=== PATIENT | female | born 1985 | race Caucasian/White ===

== ENCOUNTER → 2017-04-27 | Outpatient (CLI) | payer OTHER | LOC: HPND 10:34 | PROVIDERS: ATTEND Obstetrics & Gynecology | DX: O36.80X0 Pregnancy with inconclusive fetal viability, not applicable or unspecified (principal); Z3A.09 9 weeks gestation of pregnancy | CPT/HCPCS: 76801 ==

== ENCOUNTER 2017-11-24 18:27 | Inpatient (IN) | payer OTHER ==
[~2017-11-24] VITALS: Ht 170.2 cm; Wt 79.4 kg
[~2017-11-24 18:27] MED LIST: DIPHTH/TETANUS/ACEL PERTUSSIS (BOOSTER) 0.5 ML VIAL/PFS IM ONE; MEASLES, MUMPS, RUBELLA VACCINE 0.5 ML VIAL SQ ONE
[2017-11-24] MEDS ORDERED: PREN29TA PO (18:37)
[2017-11-24] MEDS ORDERED: LACTCAP8 PO (18:38)
[2017-11-24] MEDS ORDERED: LACTATED RINGER'S 1000 ML INJ 1,000 ML IV PRN (19:13)
[2017-11-24] MEDS ORDERED: LACTATED RINGER'S 1000 ML INJ 1,000 ML IV SCH (19:13)
[2017-11-24] MEDS ORDERED: CITRIC ACID-SODIUM CITRATE LIQ 30 ML UDC PO SCH (19:15)
[2017-11-24] MEDS ORDERED: MINERAL OIL 10 ML VIAL TOPICAL PRN (19:15)
[2017-11-24] MEDS ORDERED: LIDOCAINE HCL 1% 50 ML VIAL INFIL PRN (19:15)
[2017-11-24] MEDS ORDERED: SODIUM CHLORID 0.9% 500 ML INJ 500 ML IV PRN (19:15)
[2017-11-24] MEDS ORDERED: LIDOCAINE HCL 1% 50 ML VIAL I-DERMAL PRN (19:15)
[2017-11-24] MEDS ORDERED: OXYTOCIN 30 UNITS-500ML PREMIX 500 ML IV ONE (19:15)
--- NOTE | 2017-11-24 19:18 | HHI.HP ---
HPI Chief Complaint Contraction pain Date Seen: November 24, 2017 Time Seen: 19:14 Travel History International Travel<30 Days: No Contact w/Intl Traveler<30Days: No Known Affected Area: No History of Present Illness HPI 32-year-old white female at 39 weeks and 6 days presents complaining of labor. Denies bleeding or leakage of fluid. heart rate tracing is reactive she is yamil every 3 minutes. [facility] and has her recreation superintendent with her here today. Weeks Gestation: 39 Para: 2 : 3 History Obstetric History Obstetric History 2 vaginal deliveries Social History Alcohol Use: No Tobacco Use: No Substance Abuse: No Allergies-Medications (Allergen,Severity, Reaction): Coded Allergies: penicillin G (Verified Allergy, Intermediate, 06/17/17) Home Meds Reported Medications Lactobacillus Acidophilus (Probiotic) 10 Billion Cell Cap, 1 CAP PO TIDAC for Nutritional Supplement, #90 CAP 0 Refills 11/24/17 Vit-Iron Carbonyl ( Plus Iron 29-1 mg) 29 Mg Iron-1 Mg Tab, 1 TAB PO DAILY for Nutritional Supplement, #30 TAB 0 Refills 11/24/17 Review of Systems General / Constitutional: No: Fever, Weight Gain, Chills, Other Eyes: No: Diploplia, Blurred Vision, Visual changes, Pain, Photophobia HENT: No: Headaches, Vertigo, Lightheadedness Cardiovascular: No: Irregular Rhythm, Chest Pain or Discomfort, Palpitations, Tachycardia, Syncope, Varicosities, Edema, Cyanosis Respiratory: No: Cough, Short of Breath, Other Gastrointestinal: Abdominal Pain, No: Nausea, Vomiting, Diarrhea Genitourinary: No: Decreased Urinary Output, Oliguria Musculoskeletal: No: Limited ROM, Weakness, Cramping, Edema, Pain Skin: No Rash, No Itching, No Dryness, No Lumps, No Change in Pigmentation, No Change in Nails, No Alopecia, No Lesions Neurologic: No: Weakness, Dizziness, Syncope, Focal Abnormalities, Coordination Problem, Headache, Slurred Speech, Seizures Psychiatric: No: Depression, Suicidal Ideations, Homicidal Ideation Endocrine: No: Heat Intolerance, Cold Intolerance, Polydipsia, Polyuria, Other Physical Exam Narrative GENERAL: Well-nourished, well-developed patient. SKIN: Warm and dry. HEAD: Normocephalic and atraumatic. EYES: No scleral icterus. No injection or drainage. ENT: No nasal drainage noted. Mucous membranes pink. Airway patent. NECK: Supple, trachea midline. No JVD. CARDIOVASCULAR: Regular rate and rhythm without murmurs, gallops, or rubs. RESPIRATORY: Breath sounds equal bilaterally. No accessory muscle use. BREASTS: Bilateral exam showed no masses , no retractions, no nipple discharge. ABDOMEN/GI: Abdomen soft, non-tender, bowel sounds present, no rebound, no guarding Gravid to [-39] weeks size Fundal Height: [39-] GENITOURINARY: External Genitalia: intact and normal in appearance BUS glands: [-] Cervix: [post-] Dilatation: [-4-5] Effacement: [-80] Station: [-2] Presentation: [-vtx] Membranes: [intact ] Uterine Contractions: [-reg] FHT's: Category: [1-] Baseline: [133-] Reactive: [-R] Variability: [mod-] Decels: [-0] EXTREMITIES: No cyanosis or edema. BACK: Nontender without obvious deformity. No CVA tenderness. NEUROLOGICAL: Awake and alert. Motor and sensory grossly within normal limits. Five out of 5 muscle strength in all muscle groups. Normal speech. Caprini VTE Risk Assessment Caprini VTE Risk Assessment: No/Low Risk (score <= 1) Caprini Risk Assessment Model Point Value = 1 Point Value = 2 Point Value = 3 Point Value = 5 Age 41-60 Minor surgery BMI > 25 kg/m2 Swollen legs Varicose veins or History of unexplained or recurrent spontaneous Oral contraceptives or hormone replacement Sepsis (< 1 month) Serious lung disease, including pneumonia (< 1 month) Abnormal pulmonary function Acute myocardial infarction Congestive heart failure (< 1 month) History of inflammatory bowel disease Medical patient at bed rest Age 61-74 Arthroscopic surgery Major open surgery (> 45 min) Laparoscopic surgery (> 45 min) Malignancy Confined to bed (> 72 hours) Immobilizing plaster cast Central venous access Age >= 75 History of VTE Family history of VTE Factor V Leiden Prothrombin [id number] Lupus anticoagulant Anticardiolipin antibodies Elevated serum homocysteine Heparin-induced thrombocytopenia Other congenital or acquired thrombophilia Stroke (< 1 month) Elective arthroplasty Hip, pelvis, or leg fracture Acute spinal cord injury (< 1 month) Prophylaxis Regimen Total Risk Factor Score Risk Level Prophylaxis Regimen 0-1 Low Early ambulation 2 Moderate Order ONE of the following: *Sequential Compression Device (SCD) *Heparin 5000 units SQ BID 3-4 Higher Order ONE of the following medications: *Heparin 5000 units SQ TID *Enoxaparin/Lovenox 40 mg SQ daily (WT < 150 kg, CrCl > 30 mL/min) *Enoxaparin/Lovenox 30 mg SQ daily (WT < 150 kg, CrCl > 10-29 mL/min) *Enoxaparin/Lovenox 30 mg SQ BID (WT < 150 kg, CrCl > 30 mL/min) AND/OR *Sequential Compression Device (SCD) 5 or more Highest Order ONE of the following medications: *Heparin 5000 units SQ TID (Preferred with Epidurals) *Enoxaparin/Lovenox 40 mg SQ daily (WT < 150 kg, CrCl > 30 mL/min) *Enoxaparin/Lovenox 30 mg SQ daily (WT < 150 kg, CrCl > 10-29 mL/min) *Enoxaparin/Lovenox 30 mg SQ BID (WT < 150 kg, CrCl > 30 mL/min) AND *Sequential Compression Device (SCD) Data Data Orders Orders Admit To Inpatient (11/24/17 ) Vital Signs (Adult) .Per protocol (11/24/17 19:13) Heart (11/24/17 19:13) Amnioinfusion (11/24/17 19:13) Urinary Catheter Management .ONCE (11/24/17 19:13) Lactated Ringer's 1000 Ml Inj (Lr 1000 M (11/24/17 19:13) Lactated Ringer's 1000 Ml Inj (Lr 1000 M (11/24/17 19:13) Sodium Chlorid 0.9% 500 Ml Inj (Ns 500 M (11/24/17 19:15) Sodium Chlor 0.9% 1000 Ml Inj (Ns 1000 M (11/24/17 19:33) Lidocaine 1% Inj (50 Ml) (Xylocaine 1% I (11/24/17 19:15) Citric Acid-Sodium Citrate Liq (Bicitra (11/24/17 19:15) Fentanyl Inj (Fentanyl Inj) (11/24/17 19:15) Fentanyl Inj (Fentanyl Inj) (11/24/17 19:15) Complete Blood Count With Diff (11/24/17 19:13) Hold Clot (11/24/17 19:13) Abo/Rh Blood Type (11/24/17 19:13) Urinalysis - C+S If Indicated (11/24/17 19:13) Drug Screen, Random Urine (11/24/17 19:13) Ob/Psych Drug Screen, Urine (11/24/17 19:13) Resp Oxygen Non Rebreathe Mask (11/24/17 ) ^ Epidural / Intrathecal Infus (11/24/17 19:13) Oxytocin 30 Units-500ml Premix (Pitocin (11/24/17 19:15) Lidocaine 1% Inj (50 Ml) (Xylocaine 1% I (11/24/17 19:15) Light Mineral Oil (Muri-Lube Oil) (11/24/17 19:15) Assessment/Plan Assessment and Plan 32-year-old white female at 39 weeks 6 days presents in labor. Cervix is 4-5 cm/80/-2/vertex, contractions are regular and painful according to patient. heart rate tracing is reactive Plan- -admit to labor and delivery, managed labor appropriately, anticipate vaginal delivery Sin Gibson II, MD November 24, 2017 19:18
[2017-11-24] MEDS ORDERED: SODIUM CHLOR 0.9% 1000 ML INJ 1,000 ML IV PRN (19:33)
[2017-11-24 20:08] LABS: BILIRUBIN, URINE NEG (NEG); BLOOD, URINE SMALL (NEG); GLUCOSE,URINE NEG (NEG); KETONE, URINE 10 mg/dL (NEG); MUCUS URINE FEW /lpf (OCC); NITRITE,URINE NEG (NEG); PH, URINE 6.5 (5.0-8.5); SQUAMOUS EPITHELIAL CELL URINE 5 /hpf (0-5); URINE COLOR YELLOW (YELLW/STRAW); URINE LEUKOCYTE ESTERASE LARGE (NEG)
[2017-11-24 20:48] LABS: AUTOMATED NEUTROPHIL # 4.5 TH/MM3 (1.8-7.7); BASOPHIL % 0.4 % (0.0-2.0); EOSINOPHIL % 0.1 % (0.0-4.0); HEMATOCRIT 31.5 % (35.0-46.0); HEMOGLOBIN 10.3 GM/DL (11.6-15.3); LYMPH % 33.3 % (9.0-44.0); LYMPHOCYTE # 2.5 TH/MM3 (1.0-4.8); MEAN CELL VOLUME 79.9 FL (80.0-100.0); MEAN CORPUSCULAR HEMOGLOBIN 26.2 PG (27.0-34.0); MEAN CORPUSCULAR HGB CONC 32.7 % (32.0-36.0); MEAN PLATELET VOLUME 9.9 FL (7.0-11.0); MONO % 6.6 % (0.0-8.0); MONOCYTE # 0.5 TH/MM3 (0-0.9); NEUT % 59.6 % (16.0-70.0); PLATELET COUNT 168 TH/MM3 (150-450); RED BLOOD COUNT 3.94 MIL/MM3 (4.00-5.30); RED CELL DISTRIBUTION WIDTH 15.3 % (11.6-17.2); WHITE BLOOD COUNT 7.5 TH/MM3 (4.0-11.0)
--- NOTE | 2017-11-24 22:59 | PD.OB.DELI ---
Weeks gestation: 39 Anesthesia: None Episiotomy: None Vaginal Delivery: Normal Presentation: Occiput anterior Nuchal Cord: None Delayed cord clamping (45 sec): Yes Infant: Female Delivery date: November 24, 2017 Delivery time: 22:51 One Minute : 9 Five Minute : 9 Weight: 3555 gm Placenta: Spontaneous delivery, Intact Laceration: No lacerations Estimated blood loss: 200 cc iSn Gibson II, MD November 24, 2017 22:59
[2017-11-24] MEDS ORDERED: ONDANSETRON ODT 4 MG TAB PO PRN (23:00)
[2017-11-24] MEDS ORDERED: SODIUM CHLORIDE 0.9% FLUSH 10 ML FLUSH IV FLUSH PRN (23:00)
[2017-11-24] MEDS ORDERED: ALUMINUM/MAGNESIUM/SIMETH 30 ML CUP PO PRN (23:00)
[2017-11-24] MEDS ORDERED: DOCUSATE SODIUM 50 MG/SENNA 8.6 MG TAB PO PRN (23:00)
[2017-11-24] MEDS ORDERED: oxyCODONE/ACETAMINOPHEN 5 MG/325 MG TAB PO PRN (23:00)
[2017-11-24] MEDS ORDERED: WITCH HAZEL 50%/GLYCERIN 12.5% 40 PAD JAR TOPICAL PRN (23:00)
[2017-11-24] MEDS ORDERED: OXYTOCIN 30 UNITS-500ML PREMIX 500 ML IV SCH (23:00)
[2017-11-24] MEDS ORDERED: ZOLPIDEM TARTRATE 5 MG TAB PO PRN (23:00)
[2017-11-24] MEDS ORDERED: ACETAMINOPHEN 325 MG TAB PO PRN (23:00)
[2017-11-24] MEDS ORDERED: BENZOCAINE 20% TOPICAL SPRAY 60 ML CAN TOPICAL PRN (23:00)
[2017-11-25] MEDS: IBUPROFEN 800 MG TAB PO PRN ×3 (00:20→17:53)
[2017-11-25 00:44] VITALS: BP 110/69; PULSE 59; RESP 18; TEMP 98
--- NOTE | 2017-11-25 08:24 | HHI.OB ---
Subjective Post Day: 1 Remarks Patient seen and examined this morning. AFVSS overnight. day #1. Minimal pain. Decreased lochia. Denies dysuria. No breast tenderness. She is feeding the baby via breast. Appetite good. No nausea or vomiting. No bowel movement yet. Ambulating well. Denies calf pain, shortness of breath, or cough. She otherwise has no other complaints or concerns this morning. Objective Vitals/I&O Vital Signs Date Time Temp Pulse Resp B/P (MAP) Pulse Ox O2 Delivery O2 Flow Rate FiO2 11/25/17 00:44 98.0 59 18 110/69 (83) Objective Remarks GENERAL: Well-nourished, well-developed patient. CARDIOVASCULAR: Regular rate and rhythm without murmurs, gallops, or rubs. RESPIRATORY: Breath sounds equal bilaterally. No accessory muscle use. ABDOMEN/GI: Abdomen soft, non-tender. Fundus: Firm, non-tender at umbilicus. GENITOURINARY: Light to moderate bleeding. EXTREMITIES: No cyanosis or edema, non-tender, without signs of DVT. Medications and IVs Current Medications Medications (Trade) Dose Ordered Sig/Ruthy Route Start Time Stop Time Status Last Admin Lactated Ringer's 1,000 ml @ 125 mls/hr Q8H IV 11/24/17 19:13 11/24/17 19:13 Lactated Ringer's 1,000 ml @ 3,000 mls/hr Q20M PRN IV 11/24/17 19:13 Sodium Chloride 500 ml @ 1,000 mls/hr ONCE PRN IV 11/24/17 19:15 11/27/17 19:14 Sodium Chloride 1,000 ml @ 100 mls/hr Q10H PRN IV 11/24/17 19:33 (Xylocaine 1% Inj (50 ml)) 0.1 ml UNSCH X1 PRN I-DERMAL 11/24/17 19:15 11/27/17 19:14 (Bicitra Liq) 30 ml PICKER MACHINE OPERATOR PO 11/24/17 19:15 11/28/17 19:14 (fentaNYL INJ) 50 mcg Q1H PRN IV PUSH 11/24/17 19:15 11/24/17 21:50 (fentaNYL INJ) 100 mcg Q1H PRN IV PUSH 11/24/17 19:15 (Xylocaine 1% Inj (50 ml)) 10 ml UNSCH X1 PRN INFIL 11/24/17 19:15 11/26/17 19:14 (Muri-Lube Oil) 10 ml UNSCH PRN TOPICAL 11/24/17 19:15 (NS Flush) 2 ml BID IV FLUSH 11/25/17 09:00 (NS Flush) 2 ml UNSCH PRN IV FLUSH 11/24/17 23:00 (Tylenol) 650 mg Q4H PRN PO 11/24/17 23:00 (Motrin) 800 mg Q8H PRN PO 11/24/17 23:00 11/25/17 00:20 (Percocet 5-325 Mg) 1 tab Q4H PRN PO 11/24/17 23:00 (Americaine 20% Top Spr) 1 spray Q4H PRN TOPICAL 11/24/17 23:00 11/25/17 05:35 (Tucks Pads) 1 applic QID PRN TOPICAL 11/24/17 23:00 11/25/17 05:35 (Gladis-Colace) 2 tab Q12H PRN PO 11/24/17 23:00 (Ambien) 5 mg HS PRN PO 11/24/17 23:00 (Mag-Al Plus Susp Liq) 15 ml Q8H PRN PO 11/24/17 23:00 (Zofran Odt) 4 mg Q6H PRN PO 11/24/17 23:00 Assessment/Plan Problem List: (1) 39 weeks gestation of ICD Codes: Z3A.39 - 39 weeks gestation of Plan: 32 year old PPD#1. 1. Care - AFVSS - Encouraged OOB, as tolerated - Motrin prn pain - Advised pelvic rest x 6 weeks - breast feeding - Contraception: Patient will like to discuss her options with her OB doctor as an outpatient - Will f/u with OB provider in 6 weeks DW Jona Hernandez MD, R1 November 25, 2017 08:24
[2017-11-25] MEDS ORDERED: SODIUM CHLORIDE 0.9% FLUSH 10 ML FLUSH IV FLUSH SCH (09:00)
[2017-11-25 20:29] VITALS: BP 103/68; PULSE 67; RESP 18; TEMP 97.8
[2017-11-26] MEDS: IBUPROFEN 800 MG TAB PO PRN (03:26)
--- NOTE | 2017-11-26 08:24 | HHI.OB ---
Subjective Post Day: 2 Remarks Patient seen and examined this morning. AFVSS overnight. day #2. Patient states her pain has been well-controlled. Decreased lochia. Denies dysuria. No breast tenderness. Appetite good. No nausea or vomiting. Ambulating well. Denies fevers or chills, chest pain, calf pain, shortness of breath, or cough. She otherwise has no other complaints or concerns this morning. Objective Vitals/I&O Vital Signs Date Time Temp Pulse Resp B/P (MAP) Pulse Ox O2 Delivery O2 Flow Rate FiO2 11/25/17 20:29 97.8 67 18 103/68 (80) Objective Remarks GENERAL: Well-nourished, well-developed patient. CARDIOVASCULAR: Regular rate and rhythm without murmurs, gallops, or rubs. RESPIRATORY: Breath sounds equal bilaterally. No accessory muscle use. ABDOMEN/GI: Abdomen soft, non-tender. Fundus: Firm, non-tender at umbilicus. GENITOURINARY: Light to moderate bleeding. EXTREMITIES: No cyanosis or edema, non-tender, without signs of DVT. Medications and IVs Current Medications Medications (Trade) Dose Ordered Sig/Ruthy Route Start Time Stop Time Status Last Admin Lactated Ringer's 1,000 ml @ 125 mls/hr Q8H IV 11/24/17 19:13 11/24/17 19:13 Lactated Ringer's 1,000 ml @ 3,000 mls/hr Q20M PRN IV 11/24/17 19:13 Sodium Chloride 500 ml @ 1,000 mls/hr ONCE PRN IV 11/24/17 19:15 11/27/17 19:14 Sodium Chloride 1,000 ml @ 100 mls/hr Q10H PRN IV 11/24/17 19:33 (Xylocaine 1% Inj (50 ml)) 0.1 ml UNSCH X1 PRN I-DERMAL 11/24/17 19:15 11/27/17 19:14 (Bicitra Liq) 30 ml EMBOSSING PRESS OPERATOR APPRENTICE PO 11/24/17 19:15 11/28/17 19:14 (fentaNYL INJ) 50 mcg Q1H PRN IV PUSH 11/24/17 19:15 11/24/17 21:50 (fentaNYL INJ) 100 mcg Q1H PRN IV PUSH 11/24/17 19:15 (Xylocaine 1% Inj (50 ml)) 10 ml UNSCH X1 PRN INFIL 11/24/17 19:15 11/26/17 19:14 (Muri-Lube Oil) 10 ml UNSCH PRN TOPICAL 11/24/17 19:15 (NS Flush) 2 ml BID IV FLUSH 11/25/17 09:00 (NS Flush) 2 ml UNSCH PRN IV FLUSH 11/24/17 23:00 (Tylenol) 650 mg Q4H PRN PO 11/24/17 23:00 (Motrin) 800 mg Q8H PRN PO 11/24/17 23:00 11/26/17 03:26 (Percocet 5-325 Mg) 1 tab Q4H PRN PO 11/24/17 23:00 (Americaine 20% Top Spr) 1 spray Q4H PRN TOPICAL 11/24/17 23:00 11/25/17 05:35 (Tucks Pads) 1 applic QID PRN TOPICAL 11/24/17 23:00 11/25/17 05:35 (Gladis-Colace) 2 tab Q12H PRN PO 11/24/17 23:00 11/25/17 08:21 (Ambien) 5 mg HS PRN PO 11/24/17 23:00 (Mag-Al Plus Susp Liq) 15 ml Q8H PRN PO 11/24/17 23:00 (Zofran Odt) 4 mg Q6H PRN PO 11/24/17 23:00 Assessment/Plan Problem List: (1) 39 weeks gestation of ICD Codes: Z3A.39 - 39 weeks gestation of Plan: 32 year old PPD#2. 1. Care - AFVSS - Encouraged OOB, as tolerated - Motrin prn pain - Advised pelvic rest x 6 weeks - - Contraception: Patient will like to discuss her options with her OB doctor as an outpatient - Will f/u with OB provider in 6 weeks wdw OB hospitalist Discharge Planning Stable for discharge home today Yaw Dalton MD R2 November 26, 2017 08:24
--- NOTE | 2017-11-26 08:28 | HHI.DCPOC ---
Discharge Care Plan Diagnosis: (1) 39 weeks gestation of (2) care following vaginal delivery Report Symptoms to Your Doctor -Temperature above 100.5 degrees -Redness, of incision or excessive or foul smelling drainage -Unusual pain or calf pain -Increased vaginal bleeding -Painful or difficulty urinating -Feelings of extreme sadness or anxiety after 2 weeks Goals to Promote Your Health * To maintain your health at the optimal level, follow-up with your outpatient OB provider within 6 weeks after hospital discharge. Directions to Meet Your Goals Take your medications as prescribed Follow your dietary instruction Follow activity as directed Ensure plenty of rest for recovery Drink fluids for hydration Keep your appointments as scheduled Take your immunizations and boosters as scheduled If your symptoms worsen call your PCP, if no PCP go to Urgent Care Center or Emergency Room Smoking is Dangerous to Your Health. Avoid second hand smoke Call the 24-hour crisis hotline for domestic abuse at Yaw Dalton MD R2 November 26, 2017 08:28
[2017-11-26] MEDS ORDERED: IBUP1TAB7 PO (08:29)
[2017-11-26] MEDS ORDERED: PERI PO (08:29)
== END 2017-11-26 10:57 | disposition home or self-care (01) | DRG 775 ==
LOC: HOBED 18:27 → H2EA 19:17 → H1EA 11-25 00:33
PROVIDERS: ADMIT Obstetrics & Gynecology Maternal & Fetal Medicine; ATTEND Obstetrics & Gynecology Maternal & Fetal Medicine
PROC: 10E0XZZ Delivery of Products of Conception, External Approach (ICD-10-PCS; principal; 2017-11-24)
DX: O80 Encounter for full-term uncomplicated delivery (principal); Z23 Encounter for immunization; Z37.0 Single live birth; Z3A.39 39 weeks gestation of pregnancy
CPT/HCPCS: 59025; 80307; 81001; 85025; 86900; 86901; 87086; 99283; J2590; J3010; J7120